=== PATIENT | female | born 1970 | race Caucasian/White ===

== ENCOUNTER 2019-08-29 13:21 | Outpatient (CLI) | payer OTHER, SELFPAY ==
--- NOTE | ~2019-08-29 | US_ITS ---
EXAMINATION: US soft tissue head and neck DATE: 08/29/2019 14:31 INDICATION: Cervical lymphadenopathy. TECHNIQUE: Multiple grayscale and Doppler ultrasound images of the neck were obtained. COMPARISON: None FINDINGS: Normal-sized lymph nodes are seen in the neck bilaterally. IMPRESSION: 1. No abnormal cervical lymphadenopathy. Reviewed, dictated and finalized at location A. OLOGICAL TECHNICIAN
--- NOTE | ~2019-08-29 | CT_ITS ---
EXAMINATION: CT abdomen pelvis wo/w con DATE: 08/29/2019 14:18 INDICATION: Asymptomatic microscopic hematuria, history of lymphoma, leukemia TECHNIQUE: Computed tomography (CT) of the abdomen and pelvis was performed without intravenous contr ast. CT of the abdomen and pelvis was then performed with a total of 130 mL Omnipaque 350 intravenous contrast using a double-bolus technique for simultaneous opacification of the renal parenchyma and r enal collecting system. The dose-length product (DLP) was 792.32 mGy-cm. Automated exposure control a nd iterative reconstruction technique were employed. COMPARISON: None FINDINGS: There are multiple groundglass nodules right lower lobe which measure up to 1.8 cm. There i s mild emphysema of the visualized lung bases. 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 The liver, gallbladd er, and adrenal glands are normal. There is mild prominence of the pancreatic duct which measures up to 4 mm. The common bile duct measures up to 10 mm. There are surgical clips near the head of the quiles creas adjacent to the mid/distal common bile duct. No stones are identified in the kidneys, ureters, or bladder. There is no hydronephrosis or hydroureter. No suspicious renal or urothelial lesion is id entified. No pathologically enlarged abdominal or pelvic lymph nodes are identified. There is no free intraperitoneal gas or evidence of bowel obstruction. There is calcified atherosclerosis of the aort a and many of the other arteries. A large volume of colonic stool is present. There is mild lumbar sp ondylosis. IMPRESSION: 1. No CT correlate for the patient's symptoms. No suspicious renal or urothelial lesion identified. 2. Mild intrahepatic and extra hepatic biliary dilatation and prominence of the pancreatic duct. Find ings could relate to apparent surgical change in the region of the mid/distal common bile duct. Would recommend comparison with any prior imaging and correlation with liver function tests. Reviewed, dictated and finalized at location A. ETIC TAPE COMPOSER OPERATOR IMPRESSION: 1. No CT correlate for the patient's symptoms. No suspicious renal or urothelia l lesion identified. 2. Mild intrahepatic and extra hepatic biliary dilatation and prominence of the pancreatic duct. Findings could relate to apparent surgical change in the kaylene on of the mid/distal common bile duct. Would recommend comparison with any prio r imaging and correlation with liver function tests.
== END 2019-08-29 13:22 ==
PROVIDERS: PCP Physician Assistant; Visit Provider Physician Assistant
DX: R31.21 Asymptomatic microscopic hematuria (principal); R59.0 Localized enlarged lymph nodes
CPT/HCPCS: 74178; 76536; Q9967